=== PATIENT | female | born 1945 | race Caucasian/White ===

== ENCOUNTER → 2018-03-03 | Day surgery (SDC) | payer OTHER ==
--- NOTE | 2018-03-04 08:03 | OP ---
DATE OF OPERATION: 03/03/2018 PROCEDURE: An ultrasound-guided core biopsy. PREOPERATIVE DIAGNOSIS: Suspicious right breast upper outer quadrant masses on screening mammography and ultrasound. HISTORY: The patient is a 72-year-old postmenopausal female of [place] descent who was found to have cardiomyopathy and went into severe heart failure eventually requiring a left ventricular assist device in 2013. She is on chronic anticoagulation on Coumadin. She was found to have a palpable mass on self-exam in the upper outer aspect of the right breast in January of 2018. An outside mammography and ultrasound performed on February 12, 2018, showed 2 highly suspicious well circumscribed lobulated masses in the right breast 10 o'clock region measuring 1.4 and 1.3 cm respectively. Ultrasound core biopsy is recommended. After speaking to the patients claim technician and the outside radiologist, it was felt that this would need to be done while the patient remains on Coumadin. DESCRIPTION OF PROCEDURE: The patient was brought in for the procedure on March 03, 2018, and this was performed in the [facility]. The instrument repair technician was able to easily localize one of the masses for me, and under local anesthesia with 1% lidocaine under sterile conditions after prepping the skin and obtaining informed consent, we were able to perform ultrasound-guided core biopsy using a 13-gauge vacuum-assisted core biopsy instrument. Four separate core biopsies were taken, rotating device in each quadrant, and the specimen was sent to Pathology in formalin. A marking clip was placed into the lesion again under visualization with ultrasound without difficulty. The patient just had some mild bleeding and we held significant compression and placed her in an ERAN bandage post procedure. The patient was given instructions to remove the ERAN bandage in 24 hours just to look at the area and to replace it and keep the constant compression on it for at least 48 hours. We will call the patient with the final pathology in a couple of days. The patient tolerated the procedure well without difficulty, and estimated blood loss was minimal. ANDERSON MALIK M.D. [id number]
--- NOTE | 2018-03-04 15:00 | PATH ---
Surgical Pathology Report Patient Name: KIKI ERIC [facility]. Rec. #: [id number] /Age/Gender: 1945 (Age: 72) / F Account: [id number] Location: [facility] Taken: 03/03/2018 Received: 03/03/2018 Reported: 03/04/2018 Physicians: Damon Salazar M.D. Specimen(s) Received RIGHT BREAST UOQ MASS US-GUIDED CORE BX Clinical History Mammographic and ultrasound findings: Highly suspicious/malignant Final Diagnosis BREAST, RIGHT, 10:00, 8 CM FN, CORE BIOPSY: INVASIVE DUCTAL CARCINOMA, POORLY DIFFERENTIATED, MEASURING AT LEAST 5 MM IN GREATEST DIMENSION IN THIS MATERIAL. LYMPHOVASCULAR INVASION IS PRESENT. Results of ER, MI, Her2 & Ki67 studies will be reported separately in an addendum. Electronically Signed Philomena Souza M.D. Addendum Reported: 03/05/2018 Addendum Diagnosis Results of ER and MI studies performed at [facility] are as follows: ER (clone [id number] mouse monoclonal antibody by [employer]): 0 % nuclear staining (Negative). MI (clone16 mouse monoclonal antibody by [employer]): 0 % nuclear staining (Negative). Results of Her2 and Ki67 studies will be reported in a separate addendum. Positive and negative controls (internal if applicable) show appropriate results. Formalin fixation and cold ischemic times are within current ASCO/CAP recommendations for ER, MI and Her2 testing. Philomena Souza M.D. Addendum Reported: 03/05/2018 Addendum Diagnosis Biomarker Studies Results of Her2 (IHC) & Ki-67 studies performed on this specimen at [place], [place] ([id number]) interpreted at [facility] are as follows: Her2 IHC (EP3 from [employer], formerly known as [id number], using [employer] Polymer Refine detection kit): 0 (Negative) Ki-67: 50~60% (high proliferative index) Silvio Chacon M.D. Gross Description Received in formalin labeled "right breast 10:00, 8cmfn," is a 1.4 x 1.2 x 0.3 cm aggregate of multiple bustamante-yellow, irregular to cylindrical portions of fibroadipose tissue. The formalin is filtered and the specimen is entirely submitted in one cassette. Time to formalin fixation: 1 minute Total formalin fixation time: Approximately 6 hours. 03/03/2018 saudi03/03/2018
== END | disposition home or self-care (01) ==
LOC: FRADUS-SUR 11:00
PROVIDERS: ATTEND Surgery Surgical Oncology
PROC: 0HBT3ZX Excision of Right Breast, Percutaneous Approach, Diagnostic (ICD-10-PCS; principal; 2018-03-03)
DX: C50.411 Malignant neoplasm of upper-outer quadrant of right female breast (principal); N63.11 Unspecified lump in the right breast, upper outer quadrant; I42.9 Cardiomyopathy, unspecified; Z79.01 Long term (current) use of anticoagulants
CPT/HCPCS: 19083; 76604; 87899; 88305-TC; 88342-TC; A4648